=== PATIENT | female | born 1945 | race African-American/Black ===

== ENCOUNTER 2018-08-23 15:02 | Inpatient (IN) ==
[2018-08-23] MEDS ORDERED: SODIUM CHLORIDE 0.9% 500 ML IV STA (15:40)
[2018-08-23 16:35] LABS: Basophils # 0.1 10*3/uL (0.0-0.2); Basophils % 0.3 % (0.0-0.8); Eosinophils # 0.1 10*3/uL (0.0-0.87); Eosinophils % 0.2 % (0.00-10.9); Hematocrit 54.7 VOL% (35.7-47.0); Hemoglobin 16.6 GM/DL (12.0-16.0); Immature Granulocytes % 1.3 %; Immature Granulocytes Absolute 0.42 #; Lymphocytes # 13.9 10*3/uL (1.4-4.0); Lymphocytes % 42.4 % (21.3-54.2); Mean Corpuscular HGB Conc 30.3 GM/DL (32-36); Mean Corpuscular Hemoglobin 31 PG (27-34); Mean Corpuscular Volume 102.4 FL (87-102); Mean Platelet Volume 11.2 FL (9.6-12.0); Monocytes # 3.7 10*3/uL (0.11-0.8); Monocytes % 11.3 % (1.7-12.7); NRBC # 0.05 10*3/uL; Neutrophils # 14.6 10*3/uL (1.4-7.4); Neutrophils % 44.5 % (38.7-73.9); Platelet Count 169 T/CUMM (130-400); Red Blood Count 5.34 MC/CUMM (3.8-5.5); Red Cell Distribution Width 14.8 % (9.3-17.3); White Blood Count 32.8 T/CUMM (4-12)
[2018-08-23 16:57] LABS: Lymphocytes 42 % (20-55); Promyelocytes 2 %; Segmented Neutrophils 49 % (50-85); Total Cells Counted 100
[2018-08-23 16:58] LABS: Atypical Lymphocytes 1+; Platelet Estimate Adequate; Smudge Cells Few
[2018-08-23 17:06] LABS: Apearance,Urine CLOUDY (Clear); Bilirubin,Urine Negative (Negative); Blood, Urine Negative (Negative); Glucose,Urine (UA) Negative (Negative); Hyaline Casts,Urine 33 /LPF (0-3); Ketones,Urine 5 mg/dL (Negative); Mucus,Urine Occasional /LPF (Occasional); Nitrite,Urine Negative (Negative); Protein,Urine 30 MG/DL; RBC,Urine 1 /HPF (0-4); Squamous Epithelial Cell,Urine Occasional /HPF (0-10); WBC,Urine 3 /HPF (0-6)
[2018-08-23 17:09] LABS: Urine Color Dark yellow (Yellow)
[2018-08-23 17:26] LABS: Albumin 3.4 G/DL (3.4-5.0); Bilirubin,Total 0.96 MG/DL (0.2-1.0); Calcium 9.4 MG/DL (8.5-10.1); Total Protein 8.6 G/DL (6.4-8.3)
[2018-08-23 17:27] LABS: Osmolality,Calculated 350.9 MOS/KG (273-304); Potassium 5.3 MMOL/L (3.5-5.1); Thyroid Stimulating Hormone 1.04 uIU/ml (0.358-3.74)
[2018-08-23] MEDS ORDERED: ONDANSETRON 4 MG/2 ML VIAL IV PRN (17:47)
[2018-08-23] MEDS ORDERED: SODIUM CHLORIDE 0.9% 100 ML IV ONE (18:11)
[2018-08-23] MEDS ORDERED: GLUCAGON 1 MG VIAL IM PRN (18:24)
[2018-08-23] MEDS ORDERED: hydrALAZINE 20 MG/1 ML VIAL IV PRN (18:30)
[2018-08-23] MEDS: cefTRIAXone 1,000 MG in SYRINGE 1 EACH IV SCH (18:34)
[2018-08-23] MEDS ORDERED: SODIUM CHLORIDE 0.9% 700 ML IV ONE (19:13)
[2018-08-23] MEDS ORDERED: SODIUM CHLORIDE 0.9% 1,200 ML IV ONE (19:14)
[2018-08-23] MEDS ORDERED: SODIUM CHLORIDE 0.9% 700 ML IV STA (19:31)
[2018-08-23] MEDS: LATANOPROST 0.005% OPH SOLN 2.5 ML BOTTLE BOTH EYES SCH (21:31)
[2018-08-23] MEDS: ENOXAPARIN 30 MG/0.3 ML SYRINGE SUBCUT SCH (21:31)
[2018-08-23] MEDS: DEXTROSE 5% 1,000 ML IV SCH (22:50)
[2018-08-24] MEDS ORDERED: INFLUENZA VIRUS VACCINE 0.5 ML SYRINGE IM ONE (00:27)
[2018-08-24] MEDS: DORZOLAMIDE/TIMOLOL OPH SOLN 10 ML BOTTLE BOTH EYES SCH ×3 (00:50→21:53)
[2018-08-24] MEDS: INSULIN REGULAR 100 UNIT/ML SUBCUT SCH ×5 (02:38→23:54)
[2018-08-24] MEDS: DEXTROSE 5% 1,000 ML IV SCH ×3 (03:42→18:56)
[2018-08-24] MEDS ORDERED: LORazepam 2 MG/1 ML VIAL IV ONE ×2 (04:53→20:48)
[2018-08-24 05:26] LABS: Basophils # 0.1 10*3/uL (0.0-0.2); Basophils % 0.2 % (0.0-0.8); Eosinophils # 0.1 10*3/uL (0.0-0.87); Eosinophils % 0.4 % (0.00-10.9); Hematocrit 46.9 VOL% (35.7-47.0); Hemoglobin 14.4 GM/DL (12.0-16.0); Immature Granulocytes % 1.5 %; Immature Granulocytes Absolute 0.48 #; Lymphocytes # 13.2 10*3/uL (1.4-4.0); Lymphocytes % 42.2 % (21.3-54.2); Mean Corpuscular HGB Conc 30.7 GM/DL (32-36); Mean Corpuscular Hemoglobin 31 PG (27-34); Mean Corpuscular Volume 101.7 FL (87-102); Mean Platelet Volume 11.4 FL (9.6-12.0); Monocytes # 1.8 10*3/uL (0.11-0.8); Monocytes % 5.8 % (1.7-12.7); NRBC # 0.06 10*3/uL; Neutrophils # 15.6 10*3/uL (1.4-7.4); Neutrophils % 49.9 % (38.7-73.9); Platelet Count 146 T/CUMM (130-400); Red Blood Count 4.61 MC/CUMM (3.8-5.5); Red Cell Distribution Width 14.9 % (9.3-17.3); White Blood Count 31.2 T/CUMM (4-12)
[2018-08-24 05:44] LABS: Hypochromasia 1+; Platelet Estimate Adequate
[2018-08-24 06:17] LABS: Calcium 8.5 MG/DL (8.5-10.1); Osmolality,Calculated 348.9 MOS/KG (273-304); Potassium 3.7 MMOL/L (3.5-5.1)
[2018-08-24] MEDS: ASPIRIN 300 MG SUPP RECTAL SCH (12:34)
[2018-08-24] MEDS: cefTRIAXone 1,000 MG in SYRINGE 1 EACH IV SCH (18:04)
[2018-08-24] MEDS: ENOXAPARIN 30 MG/0.3 ML SYRINGE SUBCUT SCH (21:53)
[2018-08-24] MEDS: diphenhydrAMINE 2% CREAM 28 GM TUBE TOP PRN (21:58)
[2018-08-24] MEDS: LATANOPROST 0.005% OPH SOLN 2.5 ML BOTTLE BOTH EYES SCH (21:58)
[2018-08-25] MEDS: DEXTROSE 5% 1,000 ML IV SCH ×2 (02:53→10:50)
[2018-08-25 07:03] LABS: Basophils # 0.1 10*3/uL (0.0-0.2); Basophils % 0.6 % (0.0-0.8); Eosinophils # 0.5 10*3/uL (0.0-0.87); Eosinophils % 2.9 % (0.00-10.9); Hematocrit 38.2 VOL% (35.7-47.0); Immature Granulocytes % 1.4 %; Immature Granulocytes Absolute 0.22 #; Lymphocytes # 6.8 10*3/uL (1.4-4.0); Lymphocytes % 42.7 % (21.3-54.2); Mean Corpuscular HGB Conc 30.9 GM/DL (32-36); Mean Corpuscular Hemoglobin 31 PG (27-34); Mean Corpuscular Volume 99.2 FL (87-102); Mean Platelet Volume 12.6 FL (9.6-12.0); Monocytes % 6.2 % (1.7-12.7); NRBC # 0.11 10*3/uL; Neutrophils # 7.4 10*3/uL (1.4-7.4); Neutrophils % 46.2 % (38.7-73.9); Red Blood Count 3.85 MC/CUMM (3.8-5.5); Red Cell Distribution Width 14.6 % (9.3-17.3)
[2018-08-25 07:06] LABS: Albumin 2.6 G/DL (3.4-5.0); Bilirubin,Total 0.6 MG/DL (0.2-1.0); Osmolality,Calculated 308.8 MOS/KG (273-304); Potassium 3.1 MMOL/L (3.5-5.1); Total Protein 6.2 G/DL (6.4-8.3)
[2018-08-25 07:11] LABS: Hemoglobin 11.8 GM/DL (12.0-16.0); Platelet Count 109 T/CUMM (130-400); White Blood Count 15.9 T/CUMM (4-12)
[2018-08-25 07:22] LABS: Band Neutrophils 4 % (0-10); Eosinophils 4 % (0-10); Hypochromasia 1+; Lymphocytes 31 % (20-55); Platelet Estimate Decreased; Segmented Neutrophils 56 % (50-85); Total Cells Counted 100
[2018-08-25] MEDS: INSULIN REGULAR 100 UNIT/ML SUBCUT SCH ×4 (07:54→23:52)
[2018-08-25] MEDS: DORZOLAMIDE/TIMOLOL OPH SOLN 10 ML BOTTLE BOTH EYES SCH ×2 (09:44→20:31)
[2018-08-25] MEDS: ASPIRIN 300 MG SUPP RECTAL SCH (09:44)
[2018-08-25] MEDS ORDERED: LEVOFLOXACIN INJ 250 MG in PREMIX 1 EACH IV SCH (18:00)
[2018-08-25] MEDS: DEXTROSE 5% NACL 0.45% 1,000 ML IV SCH (18:04)
[2018-08-25] MEDS: ENOXAPARIN 30 MG/0.3 ML SYRINGE SUBCUT SCH (20:30)
[2018-08-25] MEDS: diphenhydrAMINE 2% CREAM 28 GM TUBE TOP PRN (20:31)
[2018-08-25] MEDS: POTASSIUM CHLORIDE RIDER 10 MEQ in PREMIX 1 EACH IV PRN ×3 (20:35→23:03)
[2018-08-25] MEDS: LATANOPROST 0.005% OPH SOLN 2.5 ML BOTTLE BOTH EYES SCH (21:57)
[2018-08-26] MEDS: POTASSIUM CHLORIDE RIDER 10 MEQ in PREMIX 1 EACH IV PRN ×3 (00:22→05:08)
[2018-08-26 02:57] LABS: Basophils # 0.1 10*3/uL (0.0-0.2); Basophils % 0.5 % (0.0-0.8); Eosinophils # 0.3 10*3/uL (0.0-0.87); Eosinophils % 1.9 % (0.00-10.9); Hematocrit 31.5 VOL% (35.7-47.0); Hemoglobin 10.1 GM/DL (12.0-16.0); Immature Granulocytes % 2.1 %; Immature Granulocytes Absolute 0.27 #; Lymphocytes # 4.9 10*3/uL (1.4-4.0); Lymphocytes % 37.9 % (21.3-54.2); Mean Corpuscular HGB Conc 32.1 GM/DL (32-36); Mean Corpuscular Hemoglobin 31 PG (27-34); Mean Corpuscular Volume 97.2 FL (87-102); Mean Platelet Volume 11.1 FL (9.6-12.0); Monocytes # 1.1 10*3/uL (0.11-0.8); Monocytes % 8.7 % (1.7-12.7); NRBC # 0.03 10*3/uL; Neutrophils # 6.3 10*3/uL (1.4-7.4); Neutrophils % 48.9 % (38.7-73.9); Platelet Count 119 T/CUMM (130-400); Red Blood Count 3.24 MC/CUMM (3.8-5.5); Red Cell Distribution Width 13.7 % (9.3-17.3); White Blood Count 12.9 T/CUMM (4-12)
[2018-08-26 03:09] LABS: Calcium 7.8 MG/DL (8.5-10.1); Osmolality,Calculated 287.3 MOS/KG (273-304); Potassium 3.8 MMOL/L (3.5-5.1)
[2018-08-26] MEDS ORDERED: SODIUM CHLORIDE 0.9% 500 ML IV ONE (03:13)
[2018-08-26 03:30] LABS: Band Neutrophils 2 % (0-10); Eosinophils 1 % (0-10); Lymphocytes 39 % (20-55); Metamyelocytes 2 %; Myelocytes 1 %; Platelet Estimate Decreased; Segmented Neutrophils 51 % (50-85); Total Cells Counted 100
[2018-08-26] MEDS: DEXTROSE 5% NACL 0.45% 1,000 ML IV SCH ×3 (04:00→16:56)
[2018-08-26] MEDS: INSULIN REGULAR 100 UNIT/ML SUBCUT SCH ×3 (07:25→18:07)
[2018-08-26] MEDS: ASPIRIN 300 MG SUPP RECTAL SCH (08:55)
[2018-08-26] MEDS: DORZOLAMIDE/TIMOLOL OPH SOLN 10 ML BOTTLE BOTH EYES SCH ×2 (08:56→21:08)
[2018-08-26] MEDS ORDERED: TUBERCULIN SKIN TEST 0.1 ML SYRINGE INTRADERM ONE (09:51)
[2018-08-26] MEDS ORDERED: SODIUM CHLORIDE 0.45% 1,000 ML IV SCH (14:30)
[2018-08-26] MEDS ORDERED: PIPERACILLIN/TAZOBACTAM 3,375 MG in SODIUM CHLORIDE 0.9% 100 ML IV SCH (15:00)
[2018-08-26] MEDS ORDERED: SODIUM PHOSPHATE INJ 15 MMOL in SODIUM CHLORIDE 0.9% 250 ML IV ONE (16:00)
[2018-08-26] MEDS: PANTOPRAZOLE 40 MG VIAL IV SCH (16:55)
[2018-08-26] MEDS ORDERED: ENOXAPARIN 40 MG/0.4 ML SYRINGE SUBCUT SCH (21:00)
[2018-08-26] MEDS: LATANOPROST 0.005% OPH SOLN 2.5 ML BOTTLE BOTH EYES SCH (21:06)
[2018-08-27] MEDS: INSULIN REGULAR 100 UNIT/ML SUBCUT SCH ×4 (00:44→19:25)
[2018-08-27] MEDS: VANCOMYCIN INJ 500 MG in SODIUM CHLORIDE 0.9% 100 ML IV SCH ×3 (04:44→22:13)
[2018-08-27] MEDS: DEXTROSE 5% NACL 0.45% 1,000 ML IV SCH ×2 (04:44→11:19)
[2018-08-27] MEDS: PIPERACILLIN/TAZOBACTAM 3,375 MG in SODIUM CHLORIDE 0.9% 100 ML IV SCH ×3 (04:44→15:26)
[2018-08-27 05:51] LABS: Calcium 7.7 MG/DL (8.5-10.1); Potassium 3.3 MMOL/L (3.5-5.1)
[2018-08-27] MEDS ORDERED: POTASSIUM PHOSPHATE 30 MMOL in SODIUM CHLORIDE 0.9% 250 ML IV ONE (07:30)
[2018-08-27] MEDS: PANTOPRAZOLE 40 MG VIAL IV SCH (10:32)
[2018-08-27] MEDS: DORZOLAMIDE/TIMOLOL OPH SOLN 10 ML BOTTLE BOTH EYES SCH ×2 (15:12→21:37)
[2018-08-27] MEDS: DEXTROSE 50% 25 GM/50 ML SYRINGE IV PRN (18:12)
[2018-08-27] MEDS ORDERED: LORazepam 2 MG/1 ML VIAL IV ONE (21:37)
[2018-08-27] MEDS: LATANOPROST 0.005% OPH SOLN 2.5 ML BOTTLE BOTH EYES SCH (21:37)
[2018-08-28] MEDS: PIPERACILLIN/TAZOBACTAM 3,375 MG in SODIUM CHLORIDE 0.9% 100 ML IV SCH ×2 (00:54→07:52)
[2018-08-28] MEDS: INSULIN REGULAR 100 UNIT/ML SUBCUT SCH ×4 (00:54→18:23)
[2018-08-28 05:12] LABS: Calcium 7.7 MG/DL (8.5-10.1); Osmolality,Calculated 287.7 MOS/KG (273-304); Potassium 3.7 MMOL/L (3.5-5.1)
[2018-08-28] MEDS ORDERED: ceFAZolin 1,000 MG in SYRINGE 1 EACH IV ONE (06:00)
[2018-08-28 07:34] LABS: Basophils % 0.3 % (0.0-0.8); Eosinophils # 0.3 10*3/uL (0.0-0.87); Eosinophils % 4.5 % (0.00-10.9); Hematocrit 32.9 VOL% (35.7-47.0); Hemoglobin 10.5 GM/DL (12.0-16.0); Immature Granulocytes % 0.5 %; Immature Granulocytes Absolute 0.03 #; Lymphocytes # 1.9 10*3/uL (1.4-4.0); Lymphocytes % 29.6 % (21.3-54.2); Mean Corpuscular HGB Conc 31.9 GM/DL (32-36); Mean Corpuscular Hemoglobin 31 PG (27-34); Mean Corpuscular Volume 97.9 FL (87-102); Mean Platelet Volume 10.8 FL (9.6-12.0); Monocytes # 0.7 10*3/uL (0.11-0.8); Monocytes % 10.5 % (1.7-12.7); Neutrophils # 3.4 10*3/uL (1.4-7.4); Neutrophils % 54.6 % (38.7-73.9); Platelet Count 135 T/CUMM (130-400); Red Blood Count 3.36 MC/CUMM (3.8-5.5); Red Cell Distribution Width 14.9 % (9.3-17.3); White Blood Count 6.3 T/CUMM (4-12)
[2018-08-28 08:19] LABS: Eosinophils 12 % (0-10); Hypochromasia 1+; Lymphocytes 21 % (20-55); Myelocytes 1 %; Segmented Neutrophils 58 % (50-85); Total Cells Counted 100
[2018-08-28 08:20] LABS: Macrocytosis Slight; Platelet Estimate Adequate; Target Cells Slight
[2018-08-28] MEDS: DORZOLAMIDE/TIMOLOL OPH SOLN 10 ML BOTTLE BOTH EYES SCH ×2 (08:35→20:42)
[2018-08-28] MEDS: PANTOPRAZOLE 40 MG VIAL IV SCH (08:36)
[2018-08-28] MEDS: DEXTROSE 5% NACL 0.45% 1,000 ML IV SCH ×3 (08:49→17:13)
[2018-08-28] MEDS ORDERED: LIDOCAINE 2% 5 ML VIAL ONE (09:00)
[2018-08-28] MEDS ORDERED: PROPOFOL 200 MG/20 ML VIAL IV ONE (09:00)
[2018-08-28] MEDS ORDERED: ETOMIDATE 20 MG/10 ML VIAL IV ONE (09:00)
[2018-08-28] MEDS ORDERED: LIDOCAINE 100 MG/5 ML SYRINGE ONE (09:00)
[2018-08-28] MEDS: cefTRIAXone 1,000 MG in SYRINGE 1 EACH IV SCH (09:10)
[2018-08-28] MEDS: DEXTROSE 50% 25 GM/50 ML SYRINGE IV PRN ×2 (11:30→17:59)
[2018-08-28] MEDS: LATANOPROST 0.005% OPH SOLN 2.5 ML BOTTLE BOTH EYES SCH (20:40)
[2018-08-29] MEDS: INSULIN REGULAR 100 UNIT/ML SUBCUT SCH ×2 (00:16→06:43)
[2018-08-29] MEDS: DEXTROSE 50% 25 GM/50 ML SYRINGE IV PRN (05:43)
[2018-08-29] MEDS: DEXTROSE 5% NACL 0.45% 1,000 ML IV SCH (05:47)
[2018-08-29] MEDS ORDERED: MEGESTROL 40 MG TABLET PO SCH (09:00)
[2018-08-29] MEDS ORDERED: PARoxetine 10 MG TABLET PO SCH (09:00)
[2018-08-29] MEDS ORDERED: DIVALPROEX 250 MG TABLET PO SCH (09:00)
[2018-08-29] MEDS ORDERED: DONEPEZIL 5 MG TABLET PO SCH (09:00)
[2018-08-29] MEDS: cefTRIAXone 1,000 MG in SYRINGE 1 EACH IV SCH (09:34)
[2018-08-29] MEDS: DORZOLAMIDE/TIMOLOL OPH SOLN 10 ML BOTTLE BOTH EYES SCH (09:40)
[2018-08-29] MEDS: PANTOPRAZOLE 40 MG VIAL IV SCH (09:41)
[2018-08-29 10:18] VITALS: BP 134/84
[2018-08-29] MEDS ORDERED: AMITRIPTYLINE 10 MG TABLET PO SCH (21:00)
== END 2018-08-29 10:56 | DRG 871 ==
LOC: N.ED 15:02 → N.EDINP 17:47 → N.3E 18:52
PROVIDERS: ADMIT Internal Medicine; ATTEND Internal Medicine
PROC: EGDWPEG (ICD-10-PCS; 2018-08-28 08:05)

== ENCOUNTER 2018-09-29 14:29 | Observation (INO) ==
[2018-09-29] MEDS ORDERED: SODIUM CHLORIDE 0.9% 1,550 ML IV ONE (14:59)
[2018-09-29] MEDS ORDERED: PIPERACILLIN/TAZOBACTAM 3,375 MG in SODIUM CHLORIDE 0.9% 100 ML IV STA (15:54)
[2018-09-29 16:08] LABS: Basophils % 0.1 % (0.0-0.8); Eosinophils % 0.1 % (0.00-10.9); Hematocrit 32.5 VOL% (35.7-47.0); Hemoglobin 10.4 GM/DL (12.0-16.0); Immature Granulocytes % 0.7 %; Immature Granulocytes Absolute 0.06 #; Lymphocytes # 1.3 10*3/uL (1.4-4.0); Lymphocytes % 14.7 % (21.3-54.2); Mean Corpuscular Hemoglobin 33 PG (27-34); Mean Corpuscular Volume 102.2 FL (87-102); Mean Platelet Volume 10.4 FL (9.6-12.0); Monocytes % 11.1 % (1.7-12.7); Neutrophils # 6.6 10*3/uL (1.4-7.4); Neutrophils % 73.3 % (38.7-73.9); Platelet Count 168 T/CUMM (130-400); Red Blood Count 3.18 MC/CUMM (3.8-5.5); Red Cell Distribution Width 16.2 % (9.3-17.3); White Blood Count 8.9 T/CUMM (4-12)
[2018-09-29 16:21] LABS: PT Patient Result 10.4 SECS; Partial Thromboplastin Time 24.3 SECS (0-40)
[2018-09-29 16:30] LABS: Apearance,Urine Slightly Hazy (Clear); Bacteria,Urine Many /HPF (Few); Bilirubin,Urine Negative (Negative); Blood, Urine Small mg/dL (Negative); Glucose,Urine (UA) Negative (Negative); Ketones,Urine Negative (Negative); Mucus,Urine Occasional /LPF (Occasional); Nitrite,Urine Negative (Negative); Protein,Urine Negative; Urine Color Yellow (Yellow); Urine Specific Gravity 1.011 (1.001-1.035); WBC,Urine 41 /HPF (0-6)
[2018-09-29 16:38] LABS: Bilirubin,Total 0.4 MG/DL (0.2-1.0); Calcium 7.6 MG/DL (8.5-10.1); Osmolality,Calculated 266.7 MOS/KG (273-304); Total Protein 6.9 G/DL (6.4-8.3)
[2018-09-29] MEDS ORDERED: ONDANSETRON 4 MG/2 ML VIAL IV PRN (16:47)
[2018-09-29] MEDS ORDERED: ACETAMINOPHEN 325 MG TABLET PO PRN (16:47)
[2018-09-29] MEDS ORDERED: PROMETHAZINE 25 MG/1 ML VIAL IM PRN (16:47)
[2018-09-29] MEDS ORDERED: cefTRIAXone 1,000 MG in SYRINGE 1 EACH IV SCH (17:00)
[2018-09-29] MEDS ORDERED: DEXTROSE 50% 25 GM/50 ML VIAL IV PRN (17:16)
[2018-09-29] MEDS ORDERED: GLUCAGON 1 MG VIAL IM PRN (17:16)
[2018-09-29] MEDS ORDERED: SODIUM CHLORIDE 0.9% 1,000 ML IV SCH (17:30)
[2018-09-29 17:47] LABS: Folate 14.6 NG/ML (5.4-24.0)
[2018-09-29 19:01] LABS: Risk Ratio 1.67; Thyroid Stimulating Hormone 2.11 uIU/ml (0.358-3.74)
[2018-09-29] MEDS: INSULIN LISPRO 100 UNIT/ML SUBCUT SCH (19:16)
[2018-09-29] MEDS: ALBUTEROL/IPRATROPIUM 3 ML NEB RESP TX SCH (19:43)
[2018-09-29] MEDS ORDERED: ACETAMINOPHEN 650 MG SUPP RECTAL PRN (20:40)
[2018-09-29] MEDS ORDERED: ACETAMINOPHEN 325 MG TABLET PO ONE (20:40)
[2018-09-29] MEDS ORDERED: ENOXAPARIN 30 MG/0.3 ML SYRINGE SUBCUT SCH (21:00)
[2018-09-29] MEDS ORDERED: DORZOLAMIDE/TIMOLOL OPH SOLN 10 ML BOTTLE BOTH EYES SCH (21:00)
[2018-09-29] MEDS ORDERED: LATANOPROST 0.005% OPH SOLN 2.5 ML BOTTLE BOTH EYES SCH (21:00)
[2018-09-29] MEDS: VALPROIC ACID 250 MG/5 ML UDCUP PEG SCH (21:02)
[2018-09-30] MEDS: ALBUTEROL/IPRATROPIUM 3 ML NEB RESP TX SCH ×3 (00:57→12:08)
[2018-09-30] MEDS: INSULIN LISPRO 100 UNIT/ML SUBCUT SCH ×3 (01:22→13:16)
[2018-09-30 06:18] LABS: Basophils % 0.2 % (0.0-0.8); Eosinophils % 0.5 % (0.00-10.9); Hematocrit 30.6 VOL% (35.7-47.0); Hemoglobin 9.8 GM/DL (12.0-16.0); Immature Granulocytes % 0.3 %; Immature Granulocytes Absolute 0.02 #; Lymphocytes # 0.8 10*3/uL (1.4-4.0); Lymphocytes % 11.8 % (21.3-54.2); Mean Corpuscular Hemoglobin 33 PG (27-34); Mean Corpuscular Volume 102.7 FL (87-102); Mean Platelet Volume 11.1 FL (9.6-12.0); Monocytes # 0.4 10*3/uL (0.11-0.8); Monocytes % 5.7 % (1.7-12.7); Neutrophils # 5.3 10*3/uL (1.4-7.4); Neutrophils % 81.5 % (38.7-73.9); Platelet Count 167 T/CUMM (130-400); Red Blood Count 2.98 MC/CUMM (3.8-5.5); Red Cell Distribution Width 16.1 % (9.3-17.3); White Blood Count 6.5 T/CUMM (4-12)
[2018-09-30 06:44] LABS: Calcium 7.8 MG/DL (8.5-10.1); Osmolality,Calculated 268.4 MOS/KG (273-304); Potassium 3.8 MMOL/L (3.5-5.1)
[2018-09-30 07:29] LABS: Band Neutrophils 3 % (0-10); Hypochromasia 1+; Lymphocytes 16 % (20-55); Ovalocytes Slight; Segmented Neutrophils 78 % (50-85); Total Cells Counted 100
[2018-09-30 07:30] LABS: Platelet Estimate Normal
[2018-09-30] MEDS: VALPROIC ACID 250 MG/5 ML UDCUP PEG SCH (08:56)
[2018-09-30] MEDS ORDERED: PARoxetine 10 MG TABLET PEG SCH (09:00)
[2018-09-30] MEDS ORDERED: DONEPEZIL 5 MG TABLET PEG SCH (09:00)
[2018-09-30] MEDS ORDERED: PANTOPRAZOLE 40 MG TABLET PO SCH (09:00)
[2018-09-30] MEDS ORDERED: FAMOTIDINE 20 MG TABLET PEG SCH (09:00)
[2018-09-30 15:01] VITALS: BP 122/72
== END 2018-09-30 14:40 ==
LOC: EDUNIT# → N.EDINP 14:29 → N.ED 14:29 → N.5E 17:47
PROVIDERS: ADMIT Internal Medicine; ATTEND Internal Medicine